=== PATIENT | female | born 1935 | race African-American/Black ===

== ENCOUNTER 2021-11-01 21:36 | Inpatient (IN) | payer MEDICARE, OTHER ==
[~2021-11-01] VITALS: Ht 165.1 cm; Wt 44.5 kg
[2021-11-01] MEDS ORDERED: IOHEXOL-350 100 ML BOTTLE ONE (22:14)
[2021-11-01 22:42] LABS: HEMATOCRIT. 39.6 % (36.0-48.0); HEMOGLOBIN. 12.7 g/dL (12.0-16.0); MEAN CORPUSCULAR HEMOGLOBIN 32.2 pg (28.0-32.0); MEAN CORPUSCULAR VOLUME 100.3 fL (81.0-99.0); MEAN PLATELET VOLUME 9.1 fl (7.4-10.4); PLATELET 218 x1000/uL (130-400); RED BLOOD CELL COUNT 3.95 mill/uL (4.2-5.4); RED CELL DISTRIBUTION WIDTH 13.2 % (11.6-14.6)
[2021-11-01 22:50] LABS: CHLORIDE 99 mEq/L (98-107)
[2021-11-01 22:58] LABS: ETHANOL BLOOD < 10 mg/dL; PLATELET ESTIMATE NORMAL
[2021-11-01] MEDS ORDERED: ASPIRIN 81MG TABLET PO ONE (23:00)
[2021-11-01] MEDS ORDERED: ASPIRIN 81MG TABLET PO NR (23:15)
[2021-11-02] MEDS ORDERED: ACETAMINOPHEN 325MG TABLET PO PRN ×2 (01:45)
[2021-11-02] MEDS ORDERED: DIPHENHYDRAMINE 50MG/ML VIAL IV PRN (01:45)
[2021-11-02] MEDS ORDERED: MAGNESIUM/ALUMINUM HYDROXIDE/SIMETHICONE 30ML UDC PO PRN (01:45)
[2021-11-02] MEDS ORDERED: ZOLPIDEM TARTRATE 5MG TABLET PO PRN (01:45)
[2021-11-02] MEDS ORDERED: ONDANSETRON HCL 4MG/2ML INJ IV PRN (01:45)
[2021-11-02 05:58] LABS: CHLORIDE 105 mEq/L (98-107)
[2021-11-02] MEDS: SODIUM CHLORIDE 0.9% INJ 3ML FLUSH IVF SCH ×3 (06:04→22:43)
[2021-11-02] MEDS: ENOXAPARIN 30MG/0.3ML SYR SUBCUT SCH (09:19)
[2021-11-02 10:34] VITALS: BP 105/54
[2021-11-02 12:00] VITALS: BP 100/50
[2021-11-02] MEDS ORDERED: POTASSIUM CHLORIDE 20MEQ/PACKET PO NR (13:00)
[2021-11-02 15:42] VITALS: BP 116/54
[2021-11-02 20:00] VITALS: BP 148/60
[2021-11-03] VITALS: BP 139/72
[2021-11-03 04:00] VITALS: BP 113/59
[2021-11-03] MEDS: SODIUM CHLORIDE 0.9% INJ 3ML FLUSH IVF SCH ×3 (06:54→21:45)
[2021-11-03 06:59] LABS: CHLORIDE 107 mEq/L (98-107)
[2021-11-03 07:12] LABS: HEPATITIS B SURFACE ANTIGEN NEGATIVE
[2021-11-03 07:21] LABS: VITAMIN B12 SERUM > 2000.0 pg/mL (211-911)
[2021-11-03 08:00] VITALS: BP 109/54
[2021-11-03] MEDS: ENOXAPARIN 30MG/0.3ML SYR SUBCUT SCH (10:48)
[2021-11-03 12:00] VITALS: BP 151/68
[2021-11-03 16:00] VITALS: BP 147/82
[2021-11-03] MEDS ORDERED: ASPIRIN 81MG EC TABLET PO NR (16:48)
[2021-11-03 20:00] VITALS: BP 154/75
[2021-11-03] MEDS: DEXT 5%/0.45% NACL 1000ML 1,000 ML IV SCH (21:44)
[2021-11-04] VITALS: BP 148/72
[2021-11-04 04:00] VITALS: BP 131/68
[2021-11-04] MEDS: SODIUM CHLORIDE 0.9% INJ 3ML FLUSH IVF SCH ×3 (06:11→21:09)
[2021-11-04] MEDS: DEXT 5%/0.45% NACL 1000ML 1,000 ML IV SCH ×3 (06:11→21:09)
[2021-11-04 07:54] LABS: HEMATOCRIT. 32.5 % (36.0-48.0); MEAN CORPUSCULAR HEMOGLOBIN 32.5 pg (28.0-32.0); MEAN PLATELET VOLUME 10.4 fl (7.4-10.4); PLATELET 156 x1000/uL (130-400); RED BLOOD CELL COUNT 3.39 mill/uL (4.2-5.4); RED CELL DISTRIBUTION WIDTH 13.8 % (11.6-14.6)
[2021-11-04 08:00] VITALS: BP 142/69
[2021-11-04 08:31] LABS: PHOSPHORUS 1.2 mg/dL (2.5-4.9)
[2021-11-04] MEDS: AMLODIPINE 2.5MG TABLET PO SCH (08:50)
[2021-11-04] MEDS: LEVOTHYROXINE SODIUM 25MCG TABLET PO SCH (08:50)
[2021-11-04] MEDS: ENOXAPARIN 30MG/0.3ML SYR SUBCUT SCH (08:51)
[2021-11-04] MEDS: ASPIRIN 81MG EC TABLET PO SCH (08:51)
[2021-11-04] MEDS: LEVOFLOXACIN 750MG PREMIX 150 ML IV SCH (11:36)
[2021-11-04 12:00] VITALS: BP 122/71
[2021-11-04] MEDS ORDERED: POTASSIUM PHOS,M-BASIC-D-BASIC 30 MMOL in DEXT 5% WATER 500 ML IV NR (12:00)
[2021-11-04 15:25] LABS: CREATINE KINASE 194 IU/L (26-192)
[2021-11-04 15:37] LABS: FOLIC ACID (FOLATE) SERUM 3.4 ng/mL (>5.38)
[2021-11-04 15:54] VITALS: BP 141/70
[2021-11-04 16:26] LABS: PLATELET ESTIMATE NORMAL
[2021-11-04 20:00] VITALS: BP 162/78
[2021-11-05] VITALS: BP 117/80
[2021-11-05] MEDS: CLONIDINE 0.1MG TABLET PO PRN (01:02)
[2021-11-05 04:00] VITALS: BP 125/63
[2021-11-05 06:14] LABS: CHLORIDE 103 mEq/L (98-107)
[2021-11-05 06:16] LABS: BASOPHILS % 0.2 % (0.0-2.0); EOSINOPHILS % 0.6 % (0.0-5.0); HEMATOCRIT. 34.3 % (36.0-48.0); HEMOGLOBIN. 11.6 g/dL (12.0-16.0); LYMPHOCYTES % 7.7 % (20.0-50.0); MEAN CORPUSCULAR VOLUME 97.8 fL (81.0-99.0); MONOCYTES % 9.4 % (2.0-8.0); NEUTROPHILS % 82.1 % (40.0-76.0); PLATELET 131 x1000/uL (130-400); RED BLOOD CELL COUNT 3.51 mill/uL (4.2-5.4); RED CELL DISTRIBUTION WIDTH 14.1 % (11.6-14.6)
[2021-11-05] MEDS: SODIUM CHLORIDE 0.9% INJ 3ML FLUSH IVF SCH ×3 (06:28→21:53)
[2021-11-05] MEDS: LEVOTHYROXINE SODIUM 25MCG TABLET PO SCH (06:28)
[2021-11-05] MEDS: DEXT 5%/0.45% NACL 1000ML 1,000 ML IV SCH (07:25)
[2021-11-05 07:52] VITALS: BP 129/59
[2021-11-05] MEDS: ASPIRIN 81MG EC TABLET PO SCH ×2 (08:46→09:00)
[2021-11-05] MEDS: AMLODIPINE 2.5MG TABLET PO SCH ×2 (08:46→09:00)
[2021-11-05] MEDS: ENOXAPARIN 30MG/0.3ML SYR SUBCUT SCH (08:47)
[2021-11-05] MEDS ORDERED: POTASSIUM CHLORIDE 20MEQ TABLET SR PO SCH (09:00)
[2021-11-05] MEDS ORDERED: POTASSIUM CHLORIDE 20MEQ/PACKET PO NR (09:45)
[2021-11-05] MEDS: FOLIC ACID 1MG TABLET PO SCH (10:15)
[2021-11-05] MEDS ORDERED: KCL 20MEQ/100ML PREMIX 100 ML IV NR (11:00)
[2021-11-05 11:03] LABS: PHOSPHORUS 1.7 mg/dL (2.5-4.9)
[2021-11-05] MEDS: DEXT 5%/0.9% NACL 1,000 ML IV SCH (11:06)
[2021-11-05 12:00] VITALS: BP 129/60
[2021-11-05 16:00] VITALS: BP 119/58
[2021-11-05 16:03] LABS: CLARITY URINE CLEAR (CLEAR); COLOR URINE DARK YELLOW (YELLOW); KETONES URINE NEGATIVE (NEGATIVE); LEUKOCYTE ESTERASE URINE NEGATIVE (NEGATIVE); NITRITE URINE NEGATIVE (NEGATIVE); OCCULT BLOOD URINE TRACE (NEGATIVE); PH URINE 5.5 (4.5-8.0); PROTEIN URINE 1+ (NEGATIVE); SPECIFIC GRAVITY URINE 1.013 (1.005-1.030)
[2021-11-05 20:00] VITALS: BP 125/56
[2021-11-06] VITALS: BP 121/59
[2021-11-06 04:00] VITALS: BP 114/69
[2021-11-06 06:08] LABS: HEMATOCRIT. 30.4 % (36.0-48.0); HEMOGLOBIN. 10.4 g/dL (12.0-16.0); MEAN CORPUSCULAR HEMOGLOBIN 32.6 pg (28.0-32.0); MEAN CORPUSCULAR VOLUME 94.9 fL (81.0-99.0); PLATELET 137 x1000/uL (130-400); RED BLOOD CELL COUNT 3.21 mill/uL (4.2-5.4); RED CELL DISTRIBUTION WIDTH 13.9 % (11.6-14.6)
[2021-11-06 06:14] LABS: CHLORIDE 111 mEq/L (98-107)
[2021-11-06 06:19] LABS: PHOSPHORUS 1.3 mg/dL (2.5-4.9)
[2021-11-06] MEDS: SODIUM CHLORIDE 0.9% INJ 3ML FLUSH IVF SCH ×3 (06:47→21:59)
[2021-11-06] MEDS: LEVOTHYROXINE SODIUM 25MCG TABLET PO SCH (06:47)
[2021-11-06] MEDS: DEXT 5%/0.9% NACL 1,000 ML IV SCH ×2 (06:48→18:16)
[2021-11-06 07:55] VITALS: BP 154/62
[2021-11-06] MEDS: AMLODIPINE 2.5MG TABLET PO SCH (08:25)
[2021-11-06] MEDS: LEVOFLOXACIN 750MG PREMIX 150 ML IV SCH (08:25)
[2021-11-06] MEDS: FOLIC ACID 1MG TABLET PO SCH (08:25)
[2021-11-06] MEDS: ASPIRIN 81MG EC TABLET PO SCH (08:26)
[2021-11-06] MEDS: ENOXAPARIN 30MG/0.3ML SYR SUBCUT SCH (08:26)
[2021-11-06] MEDS ORDERED: POTASSIUM PHOS,M-BASIC-D-BASIC 20 MMOL in DEXT 5% WATER 243.3333 ML IV NR (10:00)
[2021-11-06 11:34] VITALS: BP 134/61
[2021-11-06 15:12] VITALS: BP 142/57
[2021-11-06 19:18] LABS: PLATELET ESTIMATE NORMAL
[2021-11-06 20:00] VITALS: BP 149/63
[2021-11-07] VITALS (7 sets, daily range): BP systolic 120–162; BP diastolic 60–90
[2021-11-07] MEDS: DEXT 5%/0.9% NACL 1,000 ML IV SCH ×3 (05:09→22:19)
[2021-11-07] MEDS: SODIUM CHLORIDE 0.9% INJ 3ML FLUSH IVF SCH ×3 (07:10→22:29)
[2021-11-07] MEDS: LEVOTHYROXINE SODIUM 25MCG TABLET PO SCH (07:11)
[2021-11-07] MEDS: CLONIDINE 0.1MG TABLET PO PRN (08:12)
[2021-11-07] MEDS: AMLODIPINE 2.5MG TABLET PO SCH ×2 (08:12→22:24)
[2021-11-07] MEDS: ASPIRIN 81MG EC TABLET PO SCH (08:12)
[2021-11-07] MEDS: FOLIC ACID 1MG TABLET PO SCH (08:12)
[2021-11-07] MEDS: ENOXAPARIN 30MG/0.3ML SYR SUBCUT SCH (08:20)
[2021-11-07 08:34] LABS: HEMOGLOBIN. 11.8 g/dL (12.0-16.0); MEAN CORPUSCULAR HEMOGLOBIN 31.9 pg (28.0-32.0); MEAN PLATELET VOLUME 10.4 fl (7.4-10.4); PLATELET 132 x1000/uL (130-400); RED CELL DISTRIBUTION WIDTH 14.9 % (11.6-14.6)
[2021-11-07 08:53] LABS: CHLORIDE 107 mEq/L (98-107)
[2021-11-07 09:09] LABS: PHOSPHORUS 1.8 mg/dL (2.5-4.9)
[2021-11-07] MEDS ORDERED: POTASSIUM PHOS,M-BASIC-D-BASIC 15 MMOL in DEXT 5% WATER 245 ML IV NR (11:30)
[2021-11-08 04:00] VITALS: BP 137/92
[2021-11-08] MEDS: SODIUM CHLORIDE 0.9% INJ 3ML FLUSH IVF SCH ×3 (06:29→23:10)
[2021-11-08] MEDS: DEXT 5%/0.9% NACL 1,000 ML IV SCH (06:29)
[2021-11-08] MEDS: LEVOTHYROXINE SODIUM 25MCG TABLET PO SCH (06:41)
[2021-11-08 07:18] LABS: HEMATOCRIT. 33.4 % (36.0-48.0); MEAN CORPUSCULAR HEMOGLOBIN 31.8 pg (28.0-32.0); MEAN PLATELET VOLUME 9.5 fl (7.4-10.4); PLATELET 197 x1000/uL (130-400); RED BLOOD CELL COUNT 3.45 mill/uL (4.2-5.4); RED CELL DISTRIBUTION WIDTH 14.6 % (11.6-14.6)
[2021-11-08 08:00] VITALS: BP 150/58
[2021-11-08 08:04] LABS: CHLORIDE 108 mEq/L (98-107)
[2021-11-08 08:10] LABS: PHOSPHORUS 2.7 mg/dL (2.5-4.9)
[2021-11-08] MEDS ORDERED: POTASSIUM PHOS,M-BASIC-D-BASIC 30 MMOL in SODIUM CHLORIDE 0.9% 500 ML IV NR (10:00)
[2021-11-08] MEDS: AMLODIPINE 2.5MG TABLET PO SCH ×2 (10:50→23:10)
[2021-11-08] MEDS: ASPIRIN 81MG EC TABLET PO SCH (10:50)
[2021-11-08] MEDS: FOLIC ACID 1MG TABLET PO SCH (10:50)
[2021-11-08] MEDS: ENOXAPARIN 30MG/0.3ML SYR SUBCUT SCH (10:51)
[2021-11-08 12:00] VITALS: BP 148/62
[2021-11-08] MEDS ORDERED: ZINC OXIDE 20% OINT 30GM TOP PRN (13:00)
[2021-11-08 16:00] VITALS: BP 118/54
[2021-11-08 16:18] LABS: CLARITY URINE CLEAR (CLEAR); COLOR URINE YELLOW (YELLOW); KETONES URINE NEGATIVE (NEGATIVE); LEUKOCYTE ESTERASE URINE NEGATIVE (NEGATIVE); NITRITE URINE NEGATIVE (NEGATIVE); OCCULT BLOOD URINE NEGATIVE (NEGATIVE); PROTEIN URINE TRACE (NEGATIVE)
[2021-11-08] MEDS: CLINDAMYCIN HCL 150MG CAPSULE PO SCH ×2 (17:19→23:10)
[2021-11-08 20:00] VITALS: BP 143/55
[2021-11-08 20:27] LABS: PLATELET ESTIMATE NORMAL
[2021-11-08 21:30] LABS: PLATELET ESTIMATE NORMAL
[2021-11-08 23:59] VITALS: BP 150/69
[2021-11-09 03:56] VITALS: BP 133/56
[2021-11-09] MEDS: CLINDAMYCIN HCL 150MG CAPSULE PO SCH ×3 (05:02→17:23)
[2021-11-09] MEDS: LEVOTHYROXINE SODIUM 25MCG TABLET PO SCH (05:02)
[2021-11-09] MEDS: SODIUM CHLORIDE 0.9% INJ 3ML FLUSH IVF SCH ×3 (06:00→21:19)
[2021-11-09 08:00] VITALS: BP 147/66
[2021-11-09 08:10] LABS: ANTI-NUCLEAR ANTIBODIES DIRECT Negative (Negative)
[2021-11-09] MEDS: AMLODIPINE 2.5MG TABLET PO SCH ×2 (08:25→21:19)
[2021-11-09] MEDS: FOLIC ACID 1MG TABLET PO SCH (08:25)
[2021-11-09] MEDS: ASPIRIN 81MG EC TABLET PO SCH (08:25)
[2021-11-09] MEDS: ENOXAPARIN 30MG/0.3ML SYR SUBCUT SCH (08:26)
[2021-11-09] MEDS ORDERED: KCL 20MEQ/100ML PREMIX 100 ML IV NR (11:00)
[2021-11-09 12:00] VITALS: BP 134/56
[2021-11-09 16:00] VITALS: BP 146/54
[2021-11-09 20:00] VITALS: BP 148/54
[2021-11-09 21:43] LABS: BASOPHILS % 0.3 % (0.0-2.0); EOSINOPHILS % 1.9 % (0.0-5.0); HEMATOCRIT. 37.8 % (36.0-48.0); HEMOGLOBIN. 12.2 g/dL (12.0-16.0); MEAN CORPUSCULAR HEMOGLOBIN 31.6 pg (28.0-32.0); MEAN CORPUSCULAR VOLUME 97.7 fL (81.0-99.0); MEAN PLATELET VOLUME 9.3 fl (7.4-10.4); NEUTROPHILS % 79.8 % (40.0-76.0); PLATELET 291 x1000/uL (130-400); RED BLOOD CELL COUNT 3.87 mill/uL (4.2-5.4); RED CELL DISTRIBUTION WIDTH 14.7 % (11.6-14.6)
[2021-11-09 21:46] LABS: CHLORIDE 106 mEq/L (98-107)
[2021-11-10] VITALS (7 sets, daily range): BP systolic 110–147; BP diastolic 48–60
[2021-11-10] MEDS: CLINDAMYCIN HCL 150MG CAPSULE PO SCH ×4 (01:56→18:00)
[2021-11-10] MEDS: LEVOTHYROXINE SODIUM 25MCG TABLET PO SCH (06:21)
[2021-11-10] MEDS: SODIUM CHLORIDE 0.9% INJ 3ML FLUSH IVF SCH ×3 (06:21→21:16)
[2021-11-10] MEDS: FOLIC ACID 1MG TABLET PO SCH (09:09)
[2021-11-10] MEDS: AMLODIPINE 2.5MG TABLET PO SCH ×2 (09:09→20:30)
[2021-11-10] MEDS: ASPIRIN 81MG EC TABLET PO SCH (09:09)
[2021-11-10] MEDS: ENOXAPARIN 30MG/0.3ML SYR SUBCUT SCH (09:09)
[2021-11-10 17:03] LABS: HEMATOCRIT. 31.9 % (36.0-48.0); HEMOGLOBIN. 10.4 g/dL (12.0-16.0); MEAN CORPUSCULAR HEMOGLOBIN 31.8 pg (28.0-32.0); MEAN PLATELET VOLUME 9.1 fl (7.4-10.4); PLATELET 353 x1000/uL (130-400); RED BLOOD CELL COUNT 3.26 mill/uL (4.2-5.4); RED CELL DISTRIBUTION WIDTH 14.7 % (11.6-14.6)
[2021-11-10 17:07] LABS: CHLORIDE 105 mEq/L (98-107)
[2021-11-10] MEDS ORDERED: METRONIDAZOLE 500 MG PREMIX 100 ML IV SCH ×2 (17:45→21:00)
[2021-11-10 18:32] LABS: PLATELET ESTIMATE NORMAL
[2021-11-10] MEDS ORDERED: LEVOFLOXACIN 500MG PREMIX 100 ML IV NR (20:00)
[2021-11-11] MEDS: LEVOTHYROXINE SODIUM 25MCG TABLET PO SCH (05:33)
[2021-11-11 07:29] LABS: HEMATOCRIT. 29.1 % (36.0-48.0); HEMOGLOBIN. 9.7 g/dL (12.0-16.0); MEAN CORPUSCULAR HEMOGLOBIN 31.3 pg (28.0-32.0); MEAN CORPUSCULAR VOLUME 94.3 fL (81.0-99.0); MEAN PLATELET VOLUME 8.5 fl (7.4-10.4); PLATELET 396 x1000/uL (130-400); RED BLOOD CELL COUNT 3.09 mill/uL (4.2-5.4); RED CELL DISTRIBUTION WIDTH 14.4 % (11.6-14.6)
[2021-11-11 08:08] LABS: CHLORIDE 105 mEq/L (98-107)
[2021-11-11] MEDS: ASPIRIN 81MG EC TABLET PO SCH (09:44)
[2021-11-11] MEDS: FOLIC ACID 1MG TABLET PO SCH (09:44)
[2021-11-11] MEDS: AMLODIPINE 2.5MG TABLET PO SCH (09:45)
[2021-11-11] MEDS: ENOXAPARIN 30MG/0.3ML SYR SUBCUT SCH (09:45)
[2021-11-11] MEDS ORDERED: CYANOCOBALAMIN 100MCG TABLET PO SCH (11:00)
[2021-11-11 14:59] LABS: PLATELET ESTIMATE NORMAL
[2021-11-11] MEDS ORDERED: LEVOFLOXACIN 250MG PREMIX 50 ML IV SCH (20:00)
[2021-11-11] MEDS ORDERED: LEVOFLOXACIN 250MG TABLET PO SCH (20:00)
[2021-11-11] MEDS ORDERED: METRONIDAZOLE 500MG TABLET PO SCH (21:00)
== END 2021-11-11 16:20 | disposition short-term general hospital (02) | DRG 871 ==
LOC: EDBD → ER 21:36 → MICUSO 11-02 06:08 → EDBD 11-02 06:08 → 8WST 11-02 07:21 → 4WST 11-10 22:33
PROVIDERS: ADMIT Internal Medicine Geriatric Medicine; ATTEND Internal Medicine Geriatric Medicine
PROC: 4A10X4Z Monitoring of Central Nervous Electrical Activity, External Approach (ICD-10-PCS; principal; 2021-11-03)
DX: A41.9 Sepsis, unspecified organism (principal); G92.8 Other toxic encephalopathy; N17.0 Acute kidney failure with tubular necrosis; J69.0 Pneumonitis due to inhalation of food and vomit; E87.1 Hypo-osmolality and hyponatremia; E44.0 Moderate protein-calorie malnutrition; Z68.1 Body mass index [BMI] 19.9 or less, adult; K80.43 Calculus of bile duct with acute cholecystitis with obstruction; E83.39 Other disorders of phosphorus metabolism; I10 Essential (primary) hypertension; E87.6 Hypokalemia; E03.9 Hypothyroidism, unspecified; E86.0 Dehydration; M19.90 Unspecified osteoarthritis, unspecified site; K83.8 Other specified diseases of biliary tract; B18.2 Chronic viral hepatitis C; R53.81 Other malaise; D75.89 Other specified diseases of blood and blood-forming organs; E53.8 Deficiency of other specified B group vitamins; R26.2 Difficulty in walking, not elsewhere classified; I65.23 Occlusion and stenosis of bilateral carotid arteries; F02.80 Dementia in other diseases classified elsewhere, unspecified severity, without behavioral disturbance, psychotic disturbance, mood disturbance, and anxiety; G30.9 Alzheimer's disease, unspecified; D64.9 Anemia, unspecified; R74.8 Abnormal levels of other serum enzymes; Z20.822 Contact with and (suspected) exposure to COVID-19; I35.1 Nonrheumatic aortic (valve) insufficiency; Z91.81 History of falling; Z79.82 Long term (current) use of aspirin; Z88.2 Allergy status to sulfonamides; Z88.0 Allergy status to penicillin; Z79.899 Other long term (current) drug therapy; Z87.891 Personal history of nicotine dependence
CPT/HCPCS: 36415; 70496; 70498; 70551; 71045; 74181; 76705; 76770; 78227; 80048; 80053; 80076; 80320; 81003; 82140; 82550; 82607; 82746; 82962; 83036; 83735; 84100; 84105; 84439; 84443; 84484; 85025; 86038; 86160; 86705; 86709; 86803; 87340; 87426; 92610; 93005; 93306; 93970; 95816; 97110; 97162; 97166; 97530; 97535; 99291; A9537; J1650; J1956; J3480; J3490; J7030; J7040; J7042; J7060; Q9967; A4315; G0480

== ENCOUNTER 2021-11-11 14:30 | Inpatient (IN) | payer MEDICARE, OTHER ==
[~2021-11-11] VITALS: Ht 165.1 cm; Wt 40.1 kg
[2021-11-11 18:14] VITALS: BP 136/52
[2021-11-11] MEDS ORDERED: ONDANSETRON HCL 4MG/2ML INJ IV PRN (19:45)
[2021-11-11] MEDS ORDERED: CLONIDINE 0.1MG TABLET PO PRN (19:45)
[2021-11-11] MEDS ORDERED: MAGNESIUM/ALUMINUM HYDROXIDE/SIMETHICONE 30ML UDC PO PRN (19:45)
[2021-11-11] MEDS ORDERED: ZINC OXIDE 20% OINT 30GM TOP PRN (19:45)
[2021-11-11] MEDS ORDERED: ACETAMINOPHEN 325MG TABLET PO PRN ×2 (19:45)
[2021-11-11] MEDS ORDERED: DIPHENHYDRAMINE 50MG/ML VIAL IV PRN (19:45)
[2021-11-11 20:07] VITALS: BP 137/62
[2021-11-11] MEDS: METRONIDAZOLE 500MG TABLET PO SCH (21:01)
[2021-11-11] MEDS: LEVOFLOXACIN 250MG TABLET PO SCH (21:01)
[2021-11-11] MEDS: AMLODIPINE 2.5MG TABLET PO SCH (21:01)
[2021-11-12] MEDS: LEVOTHYROXINE SODIUM 25MCG TABLET PO SCH (06:05)
[2021-11-12] MEDS: SODIUM CHLORIDE 0.9% INJ 3ML FLUSH IVF SCH ×3 (06:05→20:23)
[2021-11-12 08:00] VITALS: BP 143/51
[2021-11-12] MEDS: AMLODIPINE 2.5MG TABLET PO SCH ×2 (09:07→20:22)
[2021-11-12] MEDS: ASPIRIN 81MG EC TABLET PO SCH (09:08)
[2021-11-12] MEDS: METRONIDAZOLE 500MG TABLET PO SCH ×2 (09:08→20:22)
[2021-11-12] MEDS: FOLIC ACID 1MG TABLET PO SCH (09:08)
[2021-11-12] MEDS: CYANOCOBALAMIN 1000MCG TABLET PO SCH (09:09)
[2021-11-12] MEDS: ENOXAPARIN 30MG/0.3ML SYR SUBCUT SCH (09:22)
[2021-11-12 09:51] LABS: BASOPHILS % 0.7 % (0.0-2.0); EOSINOPHILS % 2.7 % (0.0-5.0); HEMATOCRIT. 32.3 % (36.0-48.0); HEMOGLOBIN. 10.7 g/dL (12.0-16.0); LYMPHOCYTES % 14.1 % (20.0-50.0); MEAN CORPUSCULAR HEMOGLOBIN 31.7 pg (28.0-32.0); MEAN CORPUSCULAR VOLUME 95.9 fL (81.0-99.0); MEAN PLATELET VOLUME 8.4 fl (7.4-10.4); NEUTROPHILS % 72.5 % (40.0-76.0); PLATELET 445 x1000/uL (130-400); RED BLOOD CELL COUNT 3.36 mill/uL (4.2-5.4); RED CELL DISTRIBUTION WIDTH 14.6 % (11.6-14.6)
[2021-11-12 19:46] VITALS: BP 146/66
[2021-11-12] MEDS: LEVOFLOXACIN 250MG TABLET PO SCH (20:22)
[2021-11-13] MEDS: SODIUM CHLORIDE 0.9% INJ 3ML FLUSH IVF SCH ×3 (05:54→20:45)
[2021-11-13] MEDS: LEVOTHYROXINE SODIUM 25MCG TABLET PO SCH (06:00)
[2021-11-13 08:00] VITALS: BP 127/51
[2021-11-13] MEDS: CYANOCOBALAMIN 1000MCG TABLET PO SCH (08:54)
[2021-11-13] MEDS: ASPIRIN 81MG EC TABLET PO SCH (08:54)
[2021-11-13] MEDS: FOLIC ACID 1MG TABLET PO SCH (08:54)
[2021-11-13] MEDS: AMLODIPINE 2.5MG TABLET PO SCH ×2 (08:54→20:39)
[2021-11-13] MEDS: METRONIDAZOLE 500MG TABLET PO SCH ×2 (08:54→20:39)
[2021-11-13] MEDS: ENOXAPARIN 30MG/0.3ML SYR SUBCUT SCH (08:55)
[2021-11-13 20:00] VITALS: BP 117/53
[2021-11-13] MEDS: LEVOFLOXACIN 250MG TABLET PO SCH (20:39)
[2021-11-14] MEDS: SODIUM CHLORIDE 0.9% INJ 3ML FLUSH IVF SCH ×3 (05:55→21:21)
[2021-11-14] MEDS: LEVOTHYROXINE SODIUM 25MCG TABLET PO SCH (06:00)
[2021-11-14 06:46] LABS: EOSINOPHILS % 2.4 % (0.0-5.0); HEMOGLOBIN. 10.2 g/dL (12.0-16.0); LYMPHOCYTES % 15.2 % (20.0-50.0); MEAN CORPUSCULAR HEMOGLOBIN 33.4 pg (28.0-32.0); MEAN CORPUSCULAR VOLUME 95.3 fL (81.0-99.0); MEAN PLATELET VOLUME 8.7 fl (7.4-10.4); NEUTROPHILS % 68.4 % (40.0-76.0); PLATELET 516 x1000/uL (130-400); RED BLOOD CELL COUNT 3.05 mill/uL (4.2-5.4); RED CELL DISTRIBUTION WIDTH 14.4 % (11.6-14.6)
[2021-11-14 06:56] LABS: CHLORIDE 105 mEq/L (98-107)
[2021-11-14 08:00] VITALS: BP 129/59
[2021-11-14] MEDS: ENOXAPARIN 30MG/0.3ML SYR SUBCUT SCH (08:31)
[2021-11-14] MEDS: CYANOCOBALAMIN 1000MCG TABLET PO SCH (08:32)
[2021-11-14] MEDS: AMLODIPINE 2.5MG TABLET PO SCH ×2 (08:33→20:38)
[2021-11-14] MEDS: FOLIC ACID 1MG TABLET PO SCH (08:33)
[2021-11-14] MEDS: METRONIDAZOLE 500MG TABLET PO SCH ×2 (08:33→20:38)
[2021-11-14] MEDS: ASPIRIN 81MG EC TABLET PO SCH (08:34)
[2021-11-14] MEDS ORDERED: POTASSIUM CHLORIDE 20MEQ TABLET SR PO SCH (09:00)
[2021-11-14 20:00] VITALS: BP 121/54
[2021-11-14] MEDS: LEVOFLOXACIN 250MG TABLET PO SCH (20:38)
[2021-11-15] MEDS: SODIUM CHLORIDE 0.9% INJ 3ML FLUSH IVF SCH ×3 (05:19→21:44)
[2021-11-15] MEDS: LEVOTHYROXINE SODIUM 25MCG TABLET PO SCH (06:16)
[2021-11-15 06:33] LABS: HEMATOCRIT. 25.4 % (36.0-48.0); HEMOGLOBIN. 8.7 g/dL (12.0-16.0); MEAN CORPUSCULAR HEMOGLOBIN 32.9 pg (28.0-32.0); MEAN CORPUSCULAR VOLUME 96.3 fL (81.0-99.0); MEAN PLATELET VOLUME 8.4 fl (7.4-10.4); PLATELET 542 x1000/uL (130-400); RED BLOOD CELL COUNT 2.64 mill/uL (4.2-5.4); RED CELL DISTRIBUTION WIDTH 14.7 % (11.6-14.6)
[2021-11-15 06:52] LABS: CHLORIDE 106 mEq/L (98-107)
[2021-11-15 06:59] LABS: TOTAL IRON BINDING CAPACITY 269 ug/dL (250-450)
[2021-11-15 08:00] VITALS: BP_SYST 123; BP_DIAS 54; BP_DIAS 60
[2021-11-15] MEDS: METRONIDAZOLE 500MG TABLET PO SCH ×2 (09:58→20:34)
[2021-11-15] MEDS: AMLODIPINE 2.5MG TABLET PO SCH ×2 (09:59→20:35)
[2021-11-15] MEDS: CYANOCOBALAMIN 1000MCG TABLET PO SCH (09:59)
[2021-11-15] MEDS: FOLIC ACID 1MG TABLET PO SCH (09:59)
[2021-11-15] MEDS: ASPIRIN 81MG EC TABLET PO SCH (09:59)
[2021-11-15] MEDS: ENOXAPARIN 30MG/0.3ML SYR SUBCUT SCH (10:00)
[2021-11-15] MEDS: FERROUS SULFATE 325MG TABLET PO SCH (16:50)
[2021-11-15 19:34] LABS: TOTAL IRON BINDING CAPACITY 263 ug/dL (250-450)
[2021-11-15 20:10] VITALS: BP 142/71
[2021-11-15] MEDS: LEVOFLOXACIN 250MG TABLET PO SCH (20:34)
[2021-11-15 21:55] LABS: PLATELET ESTIMATE INCREASED
[2021-11-16] MEDS: SODIUM CHLORIDE 0.9% INJ 3ML FLUSH IVF SCH ×2 (05:28→14:20)
[2021-11-16 06:06] LABS: HEMATOCRIT. 28.1 % (36.0-48.0); HEMOGLOBIN. 9.5 g/dL (12.0-16.0); MEAN CORPUSCULAR HEMOGLOBIN 32.8 pg (28.0-32.0); MEAN CORPUSCULAR VOLUME 97.1 fL (81.0-99.0); MEAN PLATELET VOLUME 8.2 fl (7.4-10.4); PLATELET 586 x1000/uL (130-400); RED CELL DISTRIBUTION WIDTH 14.9 % (11.6-14.6)
[2021-11-16] MEDS: LEVOTHYROXINE SODIUM 25MCG TABLET PO SCH (06:09)
[2021-11-16 08:00] VITALS: BP 120/58
[2021-11-16] MEDS: FERROUS SULFATE 325MG TABLET PO SCH ×3 (08:45→17:04)
[2021-11-16] MEDS: METRONIDAZOLE 500MG TABLET PO SCH ×2 (08:45→20:39)
[2021-11-16] MEDS: CYANOCOBALAMIN 1000MCG TABLET PO SCH (08:45)
[2021-11-16] MEDS: FOLIC ACID 1MG TABLET PO SCH (08:45)
[2021-11-16] MEDS: AMLODIPINE 2.5MG TABLET PO SCH ×2 (08:45→20:40)
[2021-11-16 19:48] VITALS: BP 141/59
[2021-11-16] MEDS: LEVOFLOXACIN 250MG TABLET PO SCH (20:39)
[2021-11-16 22:39] LABS: PLATELET ESTIMATE INCREASED
[2021-11-17] MEDS: LEVOTHYROXINE SODIUM 25MCG TABLET PO SCH (06:23)
[2021-11-17 08:00] VITALS: BP 137/68
[2021-11-17] MEDS: CYANOCOBALAMIN 1000MCG TABLET PO SCH (09:19)
[2021-11-17] MEDS: FOLIC ACID 1MG TABLET PO SCH (09:19)
[2021-11-17] MEDS: FERROUS SULFATE 325MG TABLET PO SCH ×3 (09:20→18:07)
[2021-11-17] MEDS: AMLODIPINE 2.5MG TABLET PO SCH ×2 (09:20→20:33)
[2021-11-17] MEDS: METRONIDAZOLE 500MG TABLET PO SCH ×2 (09:21→20:33)
[2021-11-17 20:00] VITALS: BP 132/50
[2021-11-17] MEDS: LEVOFLOXACIN 250MG TABLET PO SCH (20:33)
[2021-11-18] MEDS: LEVOTHYROXINE SODIUM 25MCG TABLET PO SCH ×2 (06:28→08:11)
[2021-11-18 07:57] LABS: HEMATOCRIT. 30.1 % (36.0-48.0); HEMOGLOBIN. 9.9 g/dL (12.0-16.0); MEAN CORPUSCULAR HEMOGLOBIN 32.5 pg (28.0-32.0); MEAN CORPUSCULAR VOLUME 99.2 fL (81.0-99.0); MEAN PLATELET VOLUME 8.7 fl (7.4-10.4); PLATELET 644 x1000/uL (130-400); RED BLOOD CELL COUNT 3.03 mill/uL (4.2-5.4); RED CELL DISTRIBUTION WIDTH 15.5 % (11.6-14.6)
[2021-11-18 08:00] VITALS: BP 126/56
[2021-11-18] MEDS: FOLIC ACID 1MG TABLET PO SCH (08:11)
[2021-11-18] MEDS: FERROUS SULFATE 325MG TABLET PO SCH ×3 (08:12→16:12)
[2021-11-18] MEDS: AMLODIPINE 2.5MG TABLET PO SCH ×2 (08:12→21:06)
[2021-11-18] MEDS: CYANOCOBALAMIN 1000MCG TABLET PO SCH (08:12)
[2021-11-18 08:21] LABS: CHLORIDE 106 mEq/L (98-107)
[2021-11-18] MEDS ORDERED: LOPERAMIDE HCL 2MG CAPSULE PO PRN (09:00)
[2021-11-18] MEDS ORDERED: LOPERAMIDE HCL 2MG CAPSULE PO NR (09:00)
[2021-11-18] MEDS: ENOXAPARIN 30MG/0.3ML SYR SUBCUT SCH (12:08)
[2021-11-18 18:36] LABS: PLATELET ESTIMATE INCREASED
[2021-11-18 20:00] VITALS: BP 120/57
[2021-11-19 08:00] VITALS: BP 132/69
[2021-11-19] MEDS: CYANOCOBALAMIN 1000MCG TABLET PO SCH (09:01)
[2021-11-19] MEDS: FOLIC ACID 1MG TABLET PO SCH (09:01)
[2021-11-19] MEDS: AMLODIPINE 2.5MG TABLET PO SCH ×2 (09:02→21:06)
[2021-11-19] MEDS: FERROUS SULFATE 325MG TABLET PO SCH ×3 (09:02→18:04)
[2021-11-19] MEDS: ENOXAPARIN 30MG/0.3ML SYR SUBCUT SCH (09:02)
[2021-11-19 20:00] VITALS: BP 131/56
[2021-11-20] MEDS: LEVOTHYROXINE SODIUM 25MCG TABLET PO SCH (06:05)
[2021-11-20 06:40] VITALS: BP 143/64
[2021-11-20 08:00] VITALS: BP 143/64
[2021-11-20] MEDS: FOLIC ACID 1MG TABLET PO SCH (09:52)
[2021-11-20] MEDS: AMLODIPINE 2.5MG TABLET PO SCH (09:52)
[2021-11-20] MEDS: FERROUS SULFATE 325MG TABLET PO SCH (09:52)
[2021-11-20] MEDS: CYANOCOBALAMIN 1000MCG TABLET PO SCH (09:52)
[2021-11-20] MEDS: ENOXAPARIN 30MG/0.3ML SYR SUBCUT SCH (09:53)
== END 2021-11-20 13:36 | DRG 91 ==
LOC: UNDOADMIN 14:30
PROVIDERS: ADMIT Psychiatry & Neurology Neurology; ATTEND Internal Medicine Geriatric Medicine
DX: G92.8 Other toxic encephalopathy (principal); A41.9 Sepsis, unspecified organism; J69.0 Pneumonitis due to inhalation of food and vomit; E43 Unspecified severe protein-calorie malnutrition; N17.9 Acute kidney failure, unspecified; E87.1 Hypo-osmolality and hyponatremia; I31.3 Pericardial effusion (noninflammatory); K80.51 Calculus of bile duct without cholangitis or cholecystitis with obstruction; Z68.1 Body mass index [BMI] 19.9 or less, adult; K80.01 Calculus of gallbladder with acute cholecystitis with obstruction; R53.81 Other malaise; F02.80 Dementia in other diseases classified elsewhere, unspecified severity, without behavioral disturbance, psychotic disturbance, mood disturbance, and anxiety; G30.9 Alzheimer's disease, unspecified; B19.20 Unspecified viral hepatitis C without hepatic coma; E53.8 Deficiency of other specified B group vitamins; D75.89 Other specified diseases of blood and blood-forming organs; E87.6 Hypokalemia; D64.9 Anemia, unspecified; E83.39 Other disorders of phosphorus metabolism; I10 Essential (primary) hypertension; I35.1 Nonrheumatic aortic (valve) insufficiency; R32 Unspecified urinary incontinence; R15.9 Full incontinence of feces; Z20.822 Contact with and (suspected) exposure to COVID-19; Z91.81 History of falling
CPT/HCPCS: 36415; 74230; 80048; 80053; 80076; 82270; 83540; 83550; 85025; 85044; 87426; 92523; 92610; 92611; 97110; 97112; 97116; 97150; 97162; 97166; 97530; 97535; J1650

== ENCOUNTER 2023-03-29 16:09 | Emergency (ER) | payer MEDICARE, OTHER ==
[~2023-03-29] VITALS: Ht 165.1 cm; Wt 55.0 kg
[2023-03-29 16:11] VITALS: O2SAT 97
[2023-03-29] MEDS: TETANUS, DIPHTHERIA, PERTUSSIS VAC/PF 0.5ML (>10YR OLD) IM ONE (16:48)
[2023-03-29 19:34] VITALS: BP 151/68; PULSE 96; RESP 13; TEMP 98.3
== END 2023-03-29 19:39 | disposition home or self-care (01) ==
LOC: ER 16:09
DX: S01.01XA Laceration without foreign body of scalp, initial encounter (principal); R51.9 Headache, unspecified; I10 Essential (primary) hypertension; Z88.0 Allergy status to penicillin; Z88.2 Allergy status to sulfonamides; W01.0XXA Fall on same level from slipping, tripping and stumbling without subsequent striking against object, initial encounter; Y93.9 Activity, unspecified; Y92.89 Other specified places as the place of occurrence of the external cause; Y99.8 Other external cause status
CPT/HCPCS: 12002; 90471; 90715; 99285